=== PATIENT | female | born 1980 | race Caucasian/White ===

== ENCOUNTER 2024-08-08 22:36 | Inpatient (IN) ==
[~2024-08-08 22:36] MED LIST: Heparin 1,000 UNIT/ML 10 ml (10,000 UNITS) CATHLAB/DIALYSIS ONE; Heparin 2 UNITS/ML 1000 mls 2,000 ML IV ONE; Iohexol 350 (CONTRAST) 200 ML MDV IV ONE; Lidocaine 1% VIAL 10 MG/ML 30 ML VIAL ONE; Midazolam 5 mg/5 ml VIAL 1 mg/ml 5 ml VIAL (5 mg) ONE; VERAPAMIL 2.5 MG/ML 2 ML VIAL ** 5 mg/2 ml ONE; fentaNYL 100 mcg/2 ml 50 MCG/ML VIAL ONE; nitroGLYCERIN DRIP 25,000 MCG/250 ML BTL ONE
[2024-08-08 22:52] LABS: ABS Basophils 0.1 10^3/uL (0.0-0.1); ABS Eosinophils 0.1 10^3/uL (0.0-0.5); ABS Lymphocytes 3.4 10^3/uL (1.0-4.8); ABS Monocytes 1.2 10^3/uL (0.0-0.9); ABS Neutrophils 13.6 10^3/uL (1.5-7.6); ABS Nucleated RBC 0.01 10^3/ul; Eosinophil % 0.6 %; Hematocrit 37.8 % (35-45); Hemoglobin 12.6 g/dL (11.5-14.3); Lymphocyte % 18.5 %; Mean Corpuscular Hgb Conc 33.3 g/dL (31-36); Mean Corpuscular Volume 84.1 fL (80-97); Mean Platelet Volume 7.3 fL (7.5-11.2); Platelet Count 393 10^3/uL (150-450); Red Blood Count 4.49 10^6/uL (3.63-4.92); Red Cell Distribution Width 14.9 % (12-17); White Blood Count 18.3 10^3/uL (3.8-11.8)
[2024-08-08 23:09] LABS: INR 1.13 (0.85-1.14)
[2024-08-08] MEDS ORDERED: Atropine 0.1 MG/ML 10 ml SYR (1 mg) ONE (23:12)
[2024-08-08] MEDS ORDERED: Ondansetron 4 mg VIAL 2 MG/ML 2 ml VIAL ONE (23:12)
[2024-08-08] MEDS ORDERED: Bivalirudin 250 MG VIAL ONE (23:15)
[2024-08-08 23:19] LABS: High Sens Troponin Baseline 131 pg/mL (<15)
[2024-08-08] MEDS ORDERED: Norepinephrine 4 MG/250mL D5W 4,000 MCG/250 ML BAG IV ONE (23:26)
[2024-08-09 00:01] LABS: ALT 53 U/L (7-52); Albumin 3.9 g/dL (3.5-5.7); Albumin/Globulin Ratio 1.3 (1-3); Alkaline Phosphatase 87 U/L (35-149); Anion Gap 13 mmol/L (2-16); Blood Urea Nitrogen 13 mg/dL (6-24); CO2 Carbon Dioxide 19 mmol/L (22-32); Calcium 8.6 mg/dL (8.6-10.3); Chloride 106 mmol/L (101-111); Glucose 118 mg/dL (70-100); LDL Cholesterol Direct 176 mg/dL; Magnesium 1.8 mg/dL (1.9-2.7); Sodium 138 mmol/L (135-145); Total Bilirubin 0.3 mg/dL (0.2-1.0); Total Protein 6.9 g/dL (6.4-8.9); eGFR CKD-EPI 93.7 (>60)
[2024-08-09] MEDS ORDERED: Sulfur Hexaflouride MICROSPHR 25 MG VIAL IV PRN (00:12)
[2024-08-09] MEDS: NS 0.9% 1000 ml BAG 1,000 ML IV SCH (01:43)
[2024-08-09] MEDS: Magnesium Sulfate 2 gm BAG 2 GM/50 ML BAG IVPB ONE ×2 (02:40→10:13)
[2024-08-09] MEDS: Nicotine PATCH 14 MG/24 HR PATCH TRANSDERM SCH (03:50)
[2024-08-09] MEDS: Amiodarone 150 mg IVPREMIX 150 MG/100 ML BAG IV ONE ×2 (04:03→11:01)
[2024-08-09] MEDS: Amiodarone 400 mg TAB PO SCH (04:09)
[2024-08-09] MEDS: Nicotine Lozenge mini 2 MG LOZNG.MINI MT PRN (04:17)
[2024-08-09 05:53] LABS: ABS Basophils 0.1 10^3/uL (0.0-0.1); ABS Monocytes 0.7 10^3/uL (0.0-0.9); ABS Neutrophils 7.9 10^3/uL (1.5-7.6); ABS Nucleated RBC 0.01 10^3/ul; Eosinophil % 0.2 %; Hematocrit 33.7 % (35-45); Hemoglobin 11.2 g/dL (11.5-14.3); Lymphocyte % 25.6 %; Mean Corpuscular Hemoglobin 27.4 pg (27-33); Mean Corpuscular Hgb Conc 33.3 g/dL (31-36); Mean Corpuscular Volume 82.1 fL (80-97); Mean Platelet Volume 7.2 fL (7.5-11.2); Nucleated Red Blood Cells % 0.1 %/100WBC (0.0-0.8); Platelet Count 375 10^3/uL (150-450); Red Blood Count 4.11 10^6/uL (3.63-4.92); Red Cell Distribution Width 14.5 % (12-17); White Blood Count 11.9 10^3/uL (3.8-11.8)
[2024-08-09 06:36] LABS: Calcium 8.1 mg/dL (8.6-10.3); Creatinine, Serum 0.66 mg/dL (0.51-0.95); Potassium 4.2 mmol/L (3.5-5.0); eGFR CKD-EPI 111.6 (>60)
[2024-08-09 06:40] LABS: Albumin 3.5 g/dL (3.5-5.7); Albumin/Globulin Ratio 1.3 (1-3); Calcium 7.8 mg/dL (8.6-10.3); Creatinine, Serum 0.59 mg/dL (0.51-0.95); Globulin 2.6 g/dL (2-4); Potassium 4.2 mmol/L (3.5-5.0); Total Bilirubin 0.3 mg/dL (0.2-1.0); Total Protein 6.1 g/dL (6.4-8.9); eGFR CKD-EPI 114.6 (>60)
[2024-08-09] MEDS: Enoxaparin 40 MG/0.4 ML SYR SUBCUT SCH (10:18)
[2024-08-09] MEDS ORDERED: Enoxaparin 80 MG/0.8 ML SYR SUBCUT SCH (11:00)
[2024-08-09] MEDS: Amiodarone 360 MG IVPREMIX 360 MG/200 ML BAG IV SCH ×2 (11:21→17:30)
[2024-08-09] MEDS: Heparin 5000 UNITS/ML 1 mL VIAL IV SCH (12:03)
[2024-08-09] MEDS: Heparin DRIP 25,000 UNITS BAG 25,000 UNITS/250 ML BAG IV SCH (12:04)
[2024-08-09] MEDS: .Amiodarone 24HR ONLY IV Protocol Order Note IV ONE (13:40)
[2024-08-09] MEDS: Calcium Carb (TUMS) 500 mg CHEW TAB PO PRN (16:31)
[2024-08-09] MEDS: Ondansetron 4 mg VIAL 2 MG/ML 2 ml VIAL IV PRN (18:20)
[2024-08-09] MEDS: Ondansetron 4 mg VIAL 2 MG/ML 2 ml VIAL ONE (18:53)
[2024-08-09] MEDS: Senna TAB 8.6 mg TAB PO SCH (19:44)
[2024-08-09] MEDS: Iodixanol 320 (CONTRAST) 100 ML SDV IV ONE (20:20)
[2024-08-10 06:29] LABS: ABS Eosinophils 0.1 10^3/uL (0.0-0.5); ABS Lymphocytes 2.8 10^3/uL (1.0-4.8); ABS Monocytes 0.7 10^3/uL (0.0-0.9); ABS Neutrophils 6.2 10^3/uL (1.5-7.6); Hematocrit 30.9 % (35-45); Hemoglobin 10.5 g/dL (11.5-14.3); Lymphocyte % 28.2 %; Mean Corpuscular Hgb Conc 33.8 g/dL (31-36); Mean Corpuscular Volume 82.7 fL (80-97); Mean Platelet Volume 7.3 fL (7.5-11.2); Platelet Count 323 10^3/uL (150-450); Red Blood Count 3.74 10^6/uL (3.63-4.92); Red Cell Distribution Width 14.7 % (12-17); White Blood Count 9.8 10^3/uL (3.8-11.8)
[2024-08-10 06:52] LABS: Creatinine, Serum 0.61 mg/dL (0.51-0.95); Magnesium 2.1 mg/dL (1.9-2.7); Phosphorus 2.9 mg/dL (2.5-5.0); Potassium 3.5 mmol/L (3.5-5.0); eGFR CKD-EPI 113.7 (>60)
[2024-08-10 10:31] LABS: TSH Ultra Thyroid Stim Horm 4.65 mcIU/mL (0.34-5.60)
[2024-08-10] MEDS: Potassium Chlor 20 meq TAB.ER PO ONE (11:58)
[2024-08-10] MEDS: Amiodarone 400 mg TAB PO SCH (11:58)
[2024-08-10 12:05] LABS: T4, Total 11.89 mcg/dL (6.09-12.23)
[2024-08-10 12:12] LABS: Free T3 2.98 pg/mL (2.5-3.9)
[2024-08-10 12:17] LABS: Hemoglobin 10.7 g/dL (11.5-14.3); Mean Corpuscular Hemoglobin 27.9 pg (27-33); Mean Corpuscular Hgb Conc 33.4 g/dL (31-36); Mean Corpuscular Volume 83.5 fL (80-97); Mean Platelet Volume 7.5 fL (7.5-11.2); Platelet Count 333 10^3/uL (150-450); Red Blood Count 3.82 10^6/uL (3.63-4.92); Red Cell Distribution Width 15.2 % (12-17); White Blood Count 10.3 10^3/uL (3.8-11.8)
[2024-08-11 05:04] LABS: ABS Eosinophils 0.1 10^3/uL (0.0-0.5); ABS Lymphocytes 2.6 10^3/uL (1.0-4.8); ABS Monocytes 0.4 10^3/uL (0.0-0.9); ABS Neutrophils 3.9 10^3/uL (1.5-7.6); Eosinophil % 1.5 %; Hematocrit 28.7 % (35-45); Hemoglobin 9.7 g/dL (11.5-14.3); Lymphocyte % 36.9 %; Mean Corpuscular Hemoglobin 28.1 pg (27-33); Mean Corpuscular Hgb Conc 33.9 g/dL (31-36); Mean Corpuscular Volume 82.9 fL (80-97); Mean Platelet Volume 7.4 fL (7.5-11.2); Nucleated Red Blood Cells % 0.1 %/100WBC (0.0-0.8); Platelet Count 293 10^3/uL (150-450); Red Blood Count 3.46 10^6/uL (3.63-4.92); Red Cell Distribution Width 14.9 % (12-17); White Blood Count 7.1 10^3/uL (3.8-11.8)
[2024-08-11 05:55] LABS: Creatinine, Serum 0.6 mg/dL (0.51-0.95); Magnesium 1.9 mg/dL (1.9-2.7); Phosphorus 3.4 mg/dL (2.5-5.0); Potassium 3.7 mmol/L (3.5-5.0); eGFR CKD-EPI 114.1 (>60)
[2024-08-11] MEDS: Potassium Chlor 20 meq TAB.ER PO ONE (08:53)
[2024-08-11] MEDS: Influenza Vaccine *TRI* 2024-25* 0.5 ML SYRINGE IM ONE (09:03)
[2024-08-11] MEDS: NS 0.9% 1000 ml BAG 1,000 ML IV SCH ×2 (10:11→18:00)
[2024-08-11] MEDS: Magnesium Sulfate 2 gm BAG 2 GM/50 ML BAG IVPB ONE (10:12)
[2024-08-11 11:56] LABS: Hematocrit 27.4 % (35-45); Hemoglobin 9.2 g/dL (11.5-14.3); Mean Corpuscular Hemoglobin 28.2 pg (27-33); Mean Corpuscular Hgb Conc 33.4 g/dL (31-36); Mean Corpuscular Volume 84.3 fL (80-97); Mean Platelet Volume 7.4 fL (7.5-11.2); Platelet Count 277 10^3/uL (150-450); Red Blood Count 3.25 10^6/uL (3.63-4.92); Red Cell Distribution Width 14.8 % (12-17); White Blood Count 7.2 10^3/uL (3.8-11.8)
[2024-08-11 12:57] LABS: Ferritin 18.4 ng/mL (11-307)
[2024-08-11] MEDS ORDERED: Lidocaine 1% VIAL 10 MG/ML 30 ML VIAL ONE (14:00)
[2024-08-11] MEDS ORDERED: Heparin 2 UNITS/ML 1000 mls 2,000 ML IV ONE (14:01)
[2024-08-11] MEDS ORDERED: Iohexol 350 (CONTRAST) 100 ML PAK IV ONE ×3 (14:01→15:41)
[2024-08-11] MEDS ORDERED: Midazolam 5 mg/5 ml VIAL 1 mg/ml 5 ml VIAL (5 mg) ONE (14:02)
[2024-08-11] MEDS ORDERED: fentaNYL 100 mcg/2 ml 50 MCG/ML VIAL ONE ×4 (14:02→16:30)
[2024-08-11] MEDS ORDERED: Heparin 1,000 UNIT/ML 10 ml (10,000 UNITS) CATHLAB/DIALYSIS ONE (14:03)
[2024-08-11] MEDS ORDERED: Heparin 2 UNITS/ML 1000 mls 1,000 ML IV ONE (14:35)
[2024-08-11] MEDS: HYDROmorphone 1 MG/1 ML SYRINGE IV SLOW PU ONE (17:44)
[2024-08-11] MEDS: oxyCODONE/Acetamin 5/325 mg TAB PO PRN (19:12)
[2024-08-12 04:35] LABS: ABS Eosinophils 0.1 10^3/uL (0.0-0.5); ABS Lymphocytes 2.1 10^3/uL (1.0-4.8); ABS Monocytes 0.4 10^3/uL (0.0-0.9); ABS Neutrophils 3.7 10^3/uL (1.5-7.6); ABS Nucleated RBC 0.01 10^3/ul; Eosinophil % 1.6 %; Hematocrit 23.5 % (35-45); Hemoglobin 7.9 g/dL (11.5-14.3); Lymphocyte % 32.8 %; Mean Corpuscular Hgb Conc 33.7 g/dL (31-36); Mean Platelet Volume 7.3 fL (7.5-11.2); Nucleated Red Blood Cells % 0.1 %/100WBC (0.0-0.8); Platelet Count 268 10^3/uL (150-450); Red Blood Count 2.83 10^6/uL (3.63-4.92); Red Cell Distribution Width 14.8 % (12-17); White Blood Count 6.4 10^3/uL (3.8-11.8)
[2024-08-12 05:07] LABS: Calcium 7.8 mg/dL (8.6-10.3); Creatinine, Serum 0.68 mg/dL (0.51-0.95); Magnesium 1.9 mg/dL (1.9-2.7); Phosphorus 4.5 mg/dL (2.5-5.0); Potassium 3.6 mmol/L (3.5-5.0); eGFR CKD-EPI 110.8 (>60)
[2024-08-12 05:41] LABS: High Sensitivity Troponin 1 Hr 11086 pg/mL (<15)
[2024-08-12 08:27] LABS: Hematocrit 25.7 % (35-45); Hemoglobin 8.8 g/dL (11.5-14.3)
[2024-08-12 09:18] LABS: High Sensitivity Troponin 3 Hr 9422 pg/mL (<15)
[2024-08-12] MEDS: Potassium Chlor 20 meq TAB.ER PO ONE (09:33)
[2024-08-12] MEDS: Magnesium Sulfate 2 gm BAG 2 GM/50 ML BAG IVPB ONE (10:34)
[2024-08-12] MEDS: Potassium Chloride LIQUID 20 MEQ/15 ML LIQUID PO ONE (10:34)
[2024-08-13 06:22] LABS: ABS Eosinophils 0.2 10^3/uL (0.0-0.5); ABS Lymphocytes 1.9 10^3/uL (1.0-4.8); ABS Monocytes 0.6 10^3/uL (0.0-0.9); ABS Neutrophils 3.5 10^3/uL (1.5-7.6); ABS Nucleated RBC 0.01 10^3/ul; Eosinophil % 2.5 %; Hemoglobin 8.1 g/dL (11.5-14.3); Lymphocyte % 31.2 %; Mean Corpuscular Hemoglobin 27.9 pg (27-33); Mean Corpuscular Hgb Conc 33.7 g/dL (31-36); Mean Corpuscular Volume 82.9 fL (80-97); Mean Platelet Volume 7.3 fL (7.5-11.2); Nucleated Red Blood Cells % 0.1 %/100WBC (0.0-0.8); Platelet Count 294 10^3/uL (150-450); Red Blood Count 2.89 10^6/uL (3.63-4.92); Red Cell Distribution Width 14.8 % (12-17); White Blood Count 6.2 10^3/uL (3.8-11.8)
[2024-08-13 07:16] LABS: Calcium 7.9 mg/dL (8.6-10.3); Creatinine, Serum 0.68 mg/dL (0.51-0.95); Magnesium 1.8 mg/dL (1.9-2.7); Phosphorus 4.8 mg/dL (2.5-5.0); Potassium 4.1 mmol/L (3.5-5.0); eGFR CKD-EPI 110.8 (>60)
[2024-08-13] MEDS: Magnesium Sulfate 2 gm BAG 2 GM/50 ML BAG IVPB ONE (08:12)
[2024-08-13 10:36] LABS: Hematocrit 23.2 % (35-45)
[2024-08-13 12:05] VITALS: BP 158/88
== END 2024-08-13 13:00 | disposition home or self-care (01) | DRG 169 ==
LOC: ED 22:36 → CHICATH 22:40 → ICU 22:40 → CHICATH 22:52 → ICU 08-09 00:40 → SUATTDRO 08-09 00:40
PROVIDERS: ADMIT Internal Medicine; ATTEND Internal Medicine Pulmonary Disease

== ENCOUNTER 2024-08-17 06:28 | Inpatient (IN) ==
[2024-08-17] MEDS ORDERED: Aspirin EC 81 mg TAB.EC (enteric coated) ONE (06:38)
[2024-08-17] MEDS ORDERED: Heparin 5000 UNITS/ML 1 mL VIAL ONE (06:39)
[2024-08-17] MEDS ORDERED: fentaNYL 100 mcg/2 ml 50 MCG/ML VIAL ONE ×3 (06:46→08:33)
[2024-08-17] MEDS ORDERED: Heparin 1,000 UNIT/ML 10 ml (10,000 UNITS) CATHLAB/DIALYSIS ONE (06:49)
[2024-08-17] MEDS ORDERED: Midazolam 5 mg/5 ml VIAL 1 mg/ml 5 ml VIAL (5 mg) ONE (06:49)
[2024-08-17] MEDS ORDERED: VERAPAMIL 2.5 MG/ML 2 ML VIAL ** 5 mg/2 ml ONE (06:49)
[2024-08-17] MEDS ORDERED: Lidocaine 1% MPF 5 ML VIAL ONE (06:50)
[2024-08-17] MEDS ORDERED: niCARdipine 0.1MG/ML IVPREMIX 20 MG/200 ML BAG IV ONE (06:50)
[2024-08-17] MEDS ORDERED: Heparin 2 UNITS/ML 1000 mls 3,000 ML IV ONE (06:50)
[2024-08-17] MEDS ORDERED: nitroGLYCERIN DRIP 25,000 MCG/250 ML BTL ONE (06:50)
[2024-08-17] MEDS ORDERED: Iohexol 350 (CONTRAST) 200 ML MDV IV ONE (06:50)
[2024-08-17] MEDS ORDERED: Ondansetron 4 mg VIAL 2 MG/ML 2 ml VIAL ONE (07:02)
[2024-08-17] MEDS: Heparin - STEMI 5,000 UNITS/ML 1 ml VIAL IV ONE (07:07)
[2024-08-17 07:11] LABS: ABS Basophils 0.1 10^3/uL (0.0-0.1); ABS Eosinophils 0.1 10^3/uL (0.0-0.5); ABS Lymphocytes 3.1 10^3/uL (1.0-4.8); ABS Monocytes 0.9 10^3/uL (0.0-0.9); ABS Neutrophils 9.3 10^3/uL (1.5-7.6); ABS Nucleated RBC 0.01 10^3/ul; Eosinophil % 0.5 %; Hematocrit 30.1 % (35-45); Lymphocyte % 22.9 %; Mean Corpuscular Hgb Conc 33.3 g/dL (31-36); Mean Platelet Volume 7.6 fL (7.5-11.2); Nucleated Red Blood Cells % 0.1 %/100WBC (0.0-0.8); Platelet Count 430 10^3/uL (150-450); Red Blood Count 3.58 10^6/uL (3.63-4.92); Red Cell Distribution Width 15.2 % (12-17); White Blood Count 13.5 10^3/uL (3.8-11.8)
[2024-08-17 07:14] LABS: INR 1.16 (0.85-1.14)
[2024-08-17 07:42] LABS: Albumin 4.1 g/dL (3.5-5.7); Calcium 9.2 mg/dL (8.6-10.3); Creatinine, Serum 0.86 mg/dL (0.51-0.95); Potassium 3.6 mmol/L (3.5-5.0); Total Bilirubin 0.4 mg/dL (0.2-1.0); Total Protein 8.1 g/dL (6.4-8.9); eGFR CKD-EPI 85.9 (>60)
[2024-08-17] MEDS ORDERED: Iohexol 350 (CONTRAST) 100 ML PAK IV ONE (08:13)
[2024-08-17 08:42] LABS: Magnesium 1.6 mg/dL (1.9-2.7)
[2024-08-17] MEDS ORDERED: oxyCODONE/Acetamin 5/325 mg TAB PO PRN (08:56)
[2024-08-17] MEDS ORDERED: Ondansetron 4 mg VIAL 2 MG/ML 2 ml VIAL IV PRN (08:56)
[2024-08-17] MEDS: Enoxaparin 80 MG/0.8 ML SYR SUBCUT SCH (10:27)
[2024-08-17] MEDS: NS 0.9% 1000 ml BAG 1,000 ML IV SCH (10:27)
[2024-08-17] MEDS: Magnesium Sulf 4 GM/100 ML IV 4,000 MG/100 ML BAG IVPB ONE (16:19)
[2024-08-17] MEDS ORDERED: Morphine 2 MG/ML SYRINGE IV PRN (16:21)
[2024-08-17] MEDS: oxyCODONE/Acetamin 5/325 mg TAB PO PRN (21:38)
[2024-08-18 05:18] LABS: ABS Eosinophils 0.1 10^3/uL (0.0-0.5); ABS Lymphocytes 2.5 10^3/uL (1.0-4.8); ABS Monocytes 0.9 10^3/uL (0.0-0.9); ABS Neutrophils 5.7 10^3/uL (1.5-7.6); ABS Nucleated RBC 0.01 10^3/ul; Eosinophil % 0.9 %; Hematocrit 23.1 % (35-45); Hemoglobin 7.9 g/dL (11.5-14.3); Lymphocyte % 27.1 %; Mean Corpuscular Hemoglobin 28.6 pg (27-33); Mean Corpuscular Hgb Conc 34.3 g/dL (31-36); Mean Corpuscular Volume 83.2 fL (80-97); Mean Platelet Volume 7.3 fL (7.5-11.2); Nucleated Red Blood Cells % 0.1 %/100WBC (0.0-0.8); Platelet Count 333 10^3/uL (150-450); Red Blood Count 2.78 10^6/uL (3.63-4.92); Red Cell Distribution Width 15.1 % (12-17); White Blood Count 9.3 10^3/uL (3.8-11.8)
[2024-08-18 05:55] LABS: Albumin 3.2 g/dL (3.5-5.7); Calcium 7.9 mg/dL (8.6-10.3); Creatinine, Serum 0.66 mg/dL (0.51-0.95); Globulin 3.2 g/dL (2-4); HDL Cholesterol 24.6 mg/dL; Potassium 3.8 mmol/L (3.5-5.0); Total Bilirubin 0.4 mg/dL (0.2-1.0); Total Protein 6.4 g/dL (6.4-8.9); eGFR CKD-EPI 111.6 (>60)
[2024-08-18 07:41] LABS: Hematocrit 23.1 % (35-45); Hemoglobin 7.9 g/dL (11.5-14.3)
[2024-08-18 09:40] LABS: Magnesium 2.2 mg/dL (1.9-2.7)
[2024-08-18] MEDS: Morphine 2 MG/ML SYRINGE IV PRN (10:04)
[2024-08-18 14:22] LABS: Hematocrit 23.3 % (35-45); Hemoglobin 7.9 g/dL (11.5-14.3)
[2024-08-18] MEDS: Potassium Chloride LIQUID 20 MEQ/15 ML LIQUID PO ONE (17:49)
[2024-08-19 05:20] LABS: ABS Eosinophils 0.1 10^3/uL (0.0-0.5); ABS Lymphocytes 2.1 10^3/uL (1.0-4.8); ABS Monocytes 0.7 10^3/uL (0.0-0.9); ABS Neutrophils 4.4 10^3/uL (1.5-7.6); ABS Nucleated RBC 0.01 10^3/ul; Eosinophil % 0.9 %; Hematocrit 23.1 % (35-45); Hemoglobin 7.6 g/dL (11.5-14.3); Lymphocyte % 28.3 %; Mean Corpuscular Hemoglobin 27.7 pg (27-33); Mean Corpuscular Hgb Conc 33.1 g/dL (31-36); Mean Corpuscular Volume 83.5 fL (80-97); Mean Platelet Volume 7.3 fL (7.5-11.2); Nucleated Red Blood Cells % 0.1 %/100WBC (0.0-0.8); Platelet Count 346 10^3/uL (150-450); Red Blood Count 2.76 10^6/uL (3.63-4.92); Red Cell Distribution Width 15.2 % (12-17); White Blood Count 7.4 10^3/uL (3.8-11.8)
[2024-08-19 05:39] LABS: Calcium 8.3 mg/dL (8.6-10.3); Creatinine, Serum 0.67 mg/dL (0.51-0.95); Magnesium 1.9 mg/dL (1.9-2.7); Potassium 3.9 mmol/L (3.5-5.0); eGFR CKD-EPI 111.1 (>60)
[2024-08-19] MEDS: Magnesium Sulfate 2 gm BAG 2 GM/50 ML BAG IVPB ONE (07:13)
[2024-08-19] MEDS: KCL 20 MEQ/100 ML IVPREMIX 20 MEQ/100 ML BAG IV ONE (07:13)
[2024-08-20 05:23] LABS: Hematocrit 24.8 % (35-45); Hemoglobin 8.3 g/dL (11.5-14.3); Mean Corpuscular Hemoglobin 28.1 pg (27-33); Mean Corpuscular Hgb Conc 33.4 g/dL (31-36); Mean Corpuscular Volume 84.2 fL (80-97); Red Blood Count 2.95 10^6/uL (3.63-4.92); Red Cell Distribution Width 15.1 % (12-17); White Blood Count 11.5 10^3/uL (3.8-11.8)
[2024-08-20 06:01] LABS: ABS Basophils 0.1 10^3/uL (0.0-0.1); ABS Eosinophils 0.1 10^3/uL (0.0-0.5); ABS Lymphocytes 3.3 10^3/uL (1.0-4.8); ABS Nucleated RBC 0.01 10^3/ul; Eosinophil % 0.8 %; Mean Platelet Volume 7.4 fL (7.5-11.2); Nucleated Red Blood Cells % 0.1 %/100WBC (0.0-0.8); Platelet Count 380 10^3/uL (150-450)
[2024-08-20 06:13] LABS: Calcium 8.4 mg/dL (8.6-10.3); Creatinine, Serum 0.69 mg/dL (0.51-0.95); Magnesium 1.9 mg/dL (1.9-2.7); Potassium 4.3 mmol/L (3.5-5.0); eGFR CKD-EPI 110.4 (>60)
[2024-08-20] MEDS: Magnesium Sulfate 2 gm BAG 2 GM/50 ML BAG IVPB ONE (07:05)
[2024-08-20 13:20] VITALS: BP 106/67
[2024-08-21 16:54] LABS: DRVVT Screen Ratio 0.94 ratio (<1.20); LAC APTT 30 sec (25 - 37); LAC INR 1.1 (0.9-1.1); Prothrombin Time(LAC) 12.5 sec (9.4 - 12.5)
[2024-08-22 00:54] LABS: Phospholipid Ab IgG < 9.4 GPL; Phospholipid Ab IgM, S 17.9 MPL
[2024-08-22 20:30] LABS: Beta 2 Glycoprotein IgG <9.4 SGU
== END 2024-08-20 01:15 | disposition home or self-care (01) | DRG 174 ==
LOC: ED 06:28 → CHICARD 06:47 → ICU 08:56
PROVIDERS: ADMIT Internal Medicine